=== PATIENT | female | born 1985 | race Caucasian/White ===

== ENCOUNTER → 2023-08-02 07:50 | Outpatient (REF) | payer OTHER, SELFPAY | LOC: HWRAD 07:50 | PROVIDERS: ATTENDING PHYSICIAN Physician Assistant Medical | DX: M79.10 Myalgia, unspecified site (principal); R52 Pain, unspecified; K76.0 Fatty (change of) liver, not elsewhere classified; R10.84 Generalized abdominal pain | CPT/HCPCS: 76700 ==

== ENCOUNTER → 2023-09-07 16:03 | Outpatient (REF) | payer OTHER, SELFPAY | LOC: WDC 16:03 | PROVIDERS: ATTENDING PHYSICIAN Physician Assistant Medical | DX: N64.4 Mastodynia (principal) | CPT/HCPCS: 77062; 77066 ==

== ENCOUNTER 2023-10-18 10:01 | Emergency (ER) | payer OTHER, SELFPAY ==
[2023-10-18 10:12] VITALS: BP 142/83
[2023-10-18 11:15] VITALS: BMI 32.0
--- NOTE | 2023-10-18 11:16 | ED.GENMED ---
History of Present Illness
<Brennan Holliday PA-C - Last Filed: 10/18/23 15:57>
General
Chief Complaint: Abdominal Symptoms
Source: patient
Exam Limitations: none
Time Seen by Provider: 10/18/23 10:56
Travel History
Have you had any contact with someone who has COVID-19?: No
Do you have any symptoms of coronavirus? Fever > 100 degrees, chills, cough, shortness of breath, sore throat, loss of taste or smell, muscle aches, or headache?: No
History of Present Illness
History of Present Illness:
37-year-old female presents with sudden onset left lower abdominal pain that sharp in nature. This started while getting ready for work. The pain is made worse with walking. No fever or flank pain. No urinary symptoms. Just finished her most
recent menstrual cycle. She has a history of common bile duct dilation which is being evaluated further with an MRI next month.
Past History
<Brennan Holliday PA-C - Last Filed: 10/18/23 15:57>
Past History
ED Past Medical History: None
ED Past Surgical History: Other ([place] teeth)
Phy Exam
<Brennan Holliday PA-C - Last Filed: 10/18/23 15:57>
Physical Exam
Physical Exam:
General: Well-appearing female no acute respiratory distress
HEENT: Normocephalic atraumatic
Heart: Regular rate and rhythm no murmurs lungs: Clear to auscultation bilaterally no wheezing
Abdomen: Soft tender to the left lower quadrant no guarding or rebound normal bowel sounds nondistended extremities: No cyanosis or edema
Extremities: No cyanosis
Course
<MICHELLE Coreas Last Filed: 10/18/23 15:57>
Orders/Labs/Results
Orders:
Orders
06/17/24 11:10
Test Result ONCE
10/18/23 11:16
Complete Blood Count/With Diff Urgent
Comprehensive Metabolic Panel Urgent
HCG, Serum Qualitative Screen Urgent
Lipase Urgent
Urinalysis Reflex To Culture Urgent
Date Specimen was Collected: 10/18/23
Time Specimen was Collected: 11:10
US Pelvis W Transvag Combined Urgent
Comment:
Reason For Exam: llq pain
10/18/23 12:43
CT Abd/pelvis W Iv Cont Urgent
Comment:
Reason For Exam: llq pain
Abnormal Lab Results
10/18/23
11:16
Hct 36.2 L %
(37.0-47.0)
MCV 79.7 L fL
(81.0-99.0)
Chloride 109 H mmol/L
(98-107)
Glucose 109 H mg/dl
(70-99)
10/18/23 11:16
10/18/23 11:16
Vital Signs
Initial and Last Documented VS:
Initial Vital Signs
Temp Pulse Resp BP Pulse Ox
98.2 F 81 18 142/83 96
10/18/23 10:12 10/18/23 10:12 10/18/23 10:12 10/18/23 10:12 10/18/23 10:12
Last Documented Vital Signs
Temp Pulse Resp BP Pulse Ox
98.2 F 74 18 126/77 98
10/18/23 10:12 10/18/23 16:10 10/18/23 13:50 10/18/23 16:10 10/18/23 13:50
Geoffreylt;Davon Greenberg DO - Last Filed: 10/18/23 16:21>
Orders/Labs/Results
Orders:
Orders
10/18/23 11:10
Test Result ONCE
10/18/23 11:16
Complete Blood Count/With Diff Urgent
Comprehensive Metabolic Panel Urgent
HCG, Serum Qualitative Screen Urgent
Lipase Urgent
Urinalysis Reflex To Culture Urgent
Date Specimen was Collected: 10/18/23
Time Specimen was Collected: 11:10
US Pelvis W Transvag Combined Urgent
Comment:
Reason For Exam: llq pain
10/18/23 12:43
CT Abd/pelvis W Iv Cont Urgent
Comment:
Reason For Exam: llq pain
Abnormal Lab Results
10/18/23
11:16
Hct 36.2 L %
(37.0-47.0)
MCV 79.7 L fL
(81.0-99.0)
Chloride 109 H mmol/L
(98-107)
Glucose 109 H mg/dl
(70-99)
10/18/23 11:16
10/18/23 11:16
Vital Signs
Initial and Last Documented VS:
Initial Vital Signs
Temp Pulse Resp BP Pulse Ox
98.2 F 81 18 142/83 96
10/18/23 10:12 10/18/23 10:12 10/18/23 10:12 10/18/23 10:12 10/18/23 10:12
Last Documented Vital Signs
Temp Pulse Resp BP Pulse Ox
98.2 F 74 18 126/77 98
10/18/23 10:12 10/18/23 16:10 10/18/23 13:50 10/18/23 16:10 10/18/23 13:50
Geoffreylt;Brennan Holliday PA-C - Last Filed: 10/18/23 15:57>
MDM/Problems Addressed
Differential Diagnosis Includes:
Sudden onset left lower quadrant versus pelvic pain. Question torsion versus cyst versus diverticulitis. Patient is nontender to the right lower quadrant do not clinically suspect appendicitis given sudden onset. No flank pain. Will urinalysis
for hematuria to suggest renal colic. Ultrasound pelvis pending
<Brennan Holliday PA-C - Last Filed: 10/18/23 15:57>
*Critical Care Note
Total Time (30-74mins, 75-104mins- exclusive of procedures): Not Applicable
<Brennan Holliday PA-C - Last Filed: 10/18/23 15:57>
Update Note
Update Note:
Ultrasound of pelvis shows right-sided ovarian cyst but would not explain patient's left lower quadrant pain. CT was ordered secondary to persistent pain to the left lower abdomen. CT was reviewed and is negative for acute findings. Patient does
have left lower abdominal pain question possible musculoskeletal discomfort. No indication for any further intervention. Recommended ibuprofen or Tylenol. Stable for discharge
ED Attending Note
<Brennan Holliday PA-C - Last Filed: 10/18/23 15:57>
-
Portions of this chart may have been created with voice recognition software.� Occasional wrong word or��sound alike� substitutions may have occurred due to the inherent limitations of voice recognition software.
<Davon Greenberg DO - Last Filed: 10/18/23 16:21>
ED Attending Note
Patient seen and examined by attending physician: Yes
I performed the substantive portion of visit, reviewed & personally made and approve the management plan that is documented in note by myself or SHAKIRA.: Yes
ED Attending Note:
Patient is a 37-year-old female presents to the emergency department can planing of sudden onset of pain this morning in her left lower flank. Patient states it was sudden in onset and increases with movement. Patient denies any nausea, vomiting,
diarrhea. Patient denies fever or chills. Patient denies any recent injuries or illnesses. Patient does have 2 children under the age of 6 that she carries around frequently. Patient denies any symptoms. On physical exam patient does not
appear to be any distress. Heart is regular lungs are clear. Abdomen is essentially nontender with mild tenderness in the area of the left iliac crest. Left hip is full range of motion without pain. Reviewed the labs and ultrasound as well as
CT. Patient will be discharged to follow-up with her doctor.
Discharge Plan
Departure
Patient Disposition: Home (Routine Discharge)
Date of Disposition: 10/18/23
Time of Disposition: 15:54
Patient with high blood pressure during this ER visit?: No
Discharge Problem:
Abdominal pain
Instructions: Abdominal Pain
Referrals:
Richa Nash MD [Family Provider] -
Activity Restrictions/Additional Instructions:
Use ibuprofen or Tylenol for pain. Return here for worsening symptoms otherwise follow-up with family doctor.
Interventions
Interventions:
*Risk Screen - Suicide Last Done: 10/18/23 12:32
*General Assessment Last Done: 10/18/23 11:16
*Neglect/Abuse Screening Last Done: 10/18/23 12:32
ED- Fall Risk Assessment Last Done: 10/18/23 11:10
*ED COVID-19 Vaccine History Last Done: 10/18/23 11:08
*Nursing Disposition Last Done: 10/18/23 16:10
RO-Piznes-Jjygcqjfex Assessment Last Done: 10/18/23 11:09
Discharge Date and Time
Discharge Date/Time: 10/18/23 16:11
Print Language: GEORGIAN
[2023-10-18 11:18] VITALS: BP 121/81
[2023-10-18 11:26] LABS: Urine Albumin Negative (Neg - Trace); Urine Bilirubin Negative (Negative); Urine Character Clear (Clear); Urine Color Yellow; Urine Glucose Negative (Negative); Urine Ketone Negative (Negative); Urine Leukocyte Negative (Negative); Urine Nitrite Negative (Negative); Urine Occult Blood Negative (Negative); Urine Specific Gravity 1.005 (<1.030); Urine Urobilinogen Negative (Neg - 1+)
[2023-10-18 11:30] LABS: % Basophils 0.7 % (0-2); % Eosinophils 1.6 % (0-6); % Immature Granulocytes 0.2 % (0-0.5); % Lymphocytes 34.5 % (20.5-51.1); % Monocytes 4.9 % (1.7-9.3); % Neutrophils 58.1 % (42.2-75.2); Absolute Eosinophils 0.1 10^3/uL (0-0.7); Absolute Lymphocytes 2.1 10^3/uL (1.2-3.4); Absolute Monocytes 0.3 10^3/uL (0.1-0.6); Absolute Neutrophils 3.5 10^3/uL (1.4-6.5); Hematocrit 36.2 % (37.0-47.0); Mean Corp Hgb Conc. 35.9 g/dL (33.0-37.0); Mean Corpuscular Hgb 28.6 pg (27.0-31.0); Mean Corpuscular Volume 79.7 fL (81.0-99.0); Mean Platelet Volume 9.8 fL (7.4-10.4); Nucleated Red Blood Cells % 0 %; Platelet Count 223 10^3/uL (130-400); Red Blood Cell Count 4.54 10^6/uL (4.20-5.40); Red Cell Dist. Width 13.2 % (11.5-14.5); White Blood Cell Count 6.1 10^3/uL (4.8-10.8)
[2023-10-18 11:39] LABS: HCG, Serum Qualitative Screen Negative
[2023-10-18 11:44] LABS: ALT (SGPT) 24 U/L (0-35); AST (SGOT) 24 U/L (14-36); Albumin 4.4 g/dl (3.5-5.0); Alkaline Phosphatase 48 U/L (38-126); Blood Urea Nitrogen 9 mg/dl (7-17); Calcium 9.4 mg/dl (8.4-10.2); Carbon Dioxide 25 mmol/L (22-30); Chloride 109 mmol/L (98-107); Estimated Creatinine Clearance > 125 ml/min; Glucose 109 mg/dl (70-99); Lipase 38 U/L (23-300); Potassium 4.3 mmol/L (3.5-5.1); Sodium 141 mmol/L (135-145); Total Bilirubin 0.8 mg/dl (0.2-1.3); Total Protein 6.9 g/dl (6.3-8.2); eGFR > 60.00
[2023-10-18 13:50] VITALS: BP 98/66
[2023-10-18 15:58] VITALS: BP 126/77
[2023-10-18 16:10] VITALS: BP 126/77
== END 2023-10-18 16:11 | disposition home or self-care (01) ==
LOC: EMR 10:01
PROVIDERS: Physician Assistant; EMERGENCY PHYSICIAN Emergency Medicine; FAMILY PHYSICIAN Internal Medicine
DX: R10.32 Left lower quadrant pain (principal)
CPT/HCPCS: 99285; 74177; 76830; 76856; 80053; 81003; 83690; 84703; 85025; Q9967

== ENCOUNTER → 2023-11-03 08:39 | Outpatient (REF) | payer OTHER, SELFPAY | LOC: MRI 3T 08:39 | PROVIDERS: ATTENDING PHYSICIAN Internal Medicine Gastroenterology; FAMILY PHYSICIAN Internal Medicine | DX: K83.8 Other specified diseases of biliary tract (principal) | CPT/HCPCS: 74183; A9575 ==

== ENCOUNTER 2024-02-21 14:36 | Emergency (ER) | payer OTHER, SELFPAY ==
[2024-02-21 15:00] VITALS: BP 148/97
--- NOTE | 2024-02-21 15:01 | ED.GENMED ---
ED Provider Triage
<Brittaney Alexandra LEAN MANAGER - Last Filed: 02/21/24 15:09>
-
Patient seen by provider in Triage?: Seen in Triage
Attestation: A medical screening examination has been initiated by a qualified medical provider. Based on the assessment performed at this time, it has been determined that an emergent medical condition may exist and the patient has been informed
that further medical evaluation and possible additional diagnostic testing may be needed.
HPI: 38 yo female states 'throbbing 9/10 pain upper part of my head,' had sudden onset 'really bad vertigo' while cooking dinner 2 nights ago, constant since then. Vomited several times in past two days, none today. Diarrhea (small squirts) twice a
day past 2 days, last, this a.m. Took Tylenol yesterday with no help. Took nothing today. Pt drinking water in triage.
GENERAL: Alert , in no apparent distress
EYE: No visual abnormalities.
ENT: Dry mucus membranes, No other abnormalities.
LUNGS: No acute respiratory distress
NEUROLOGICAL: Alert and oriented
SKIN: Skin intact. No visible changes.
MUSCULOSKELETAL: Moving extremities normally
PSYCH: Normal and appropriate interaction.
This is a medical evaluation conducted in person to initiate diagnostic evaluation and provide initial therapeutics. Please see further documentation by the treating clinician.
History of Present Illness
<Brittaney Alexandra, LEAN MANAGER - Last Filed: 02/21/24 15:09>
General
Chief Complaint: Dizziness
Time Seen by Provider: 02/21/24 17:19
<Ashly Faustin DO - Last Filed: 02/21/24 18:59>
History of Present Illness
History of Present Illness:
38-year-old female without significant past medical history presenting to the emergency department for dizziness and nausea and vomiting. Patient reports symptoms started about 2 days ago. She started to feel very dizzy, worse with any type of
head movement. Since onset of symptoms, has had nausea, vomiting, and subsequent headache. She is feeling dehydrated. Denies ever having symptoms like this in the past. She reports slight improvement of symptoms today, was able to get herself
dressed and get herself to the hospital, which was not the case in the past 2 days. Denies associated visual changes. Denies weakness or numbness to her extremities. Denies fever or sick contacts. Denies any injury or trauma. Denies additional
acute medical complaints
Past History
<Brittaney Alexandra, LEAN MANAGER - Last Filed: 02/21/24 15:09>
Past History
ED Past Medical History: None
ED Past Surgical History: Other ([place] teeth)
Phy Exam
<Ashly Faustin DO - Last Filed: 02/21/24 18:59>
Physical Exam
Physical Exam:
General: Well-appearing, no clinical signs of dehydration, nontoxic and in no acute distress
HEENT: protecting airway, pupils equal and reactive bilaterally, extraocular movements intact. Fatigable nystagmus when looking lateral left. TMs normal bilaterally
Neck: appears supple
CV: Normal heart rate, regular rhythm
Resp: No accessory muscle use, no increased work of breathing, lungs clear to auscultation bilaterally
Abd: Soft and non-distended, no tenderness to palpation
Extremities: No deformities, no swelling, no erythema, pulses and sensation intact
Neuro: alert, no focal neurologic deficit
: deferred
Rectal: deferred
Psych: Normal affect
Skin: Intact
Course
<Brittaney Alexandra, LEAN MANAGER - Last Filed: 02/21/24 15:09>
Orders/Labs/Results
Orders:
Orders
02/21/24 17:33
0.9% Sodium Chloride 1000 ml [Nss] 1,000 ml IV BOLUS
Ketorolac [Toradol] 30 mg IV NOW STA
Meclizine [Antivert] 25 mg PO NOW STA
Ondansetron Injectable [Zofran] 4 mg IV NOW STA
02/21/24 17:34
Test Result ONCE
02/21/24 17:49
Complete Blood Count/With Diff Urgent
Comprehensive Metabolic Panel Urgent
HCG, Serum Qualitative Screen Urgent
Abnormal Lab Results
02/21/24
17:49
MCV 78.1 L fL
(81.0-99.0)
Absolute Neuts (auto) 7.1 H 10^3/uL
(1.4-6.5)
Lymphocytes % 20.3 L %
(20.5-51.1)
02/21/24 17:49
02/21/24 17:49
Vital Signs
Initial and Last Documented VS:
Initial Vital Signs
Temp Pulse Resp BP Pulse Ox
97.9 F 83 16 148/97 99
02/21/24 15:00 02/21/24 15:00 02/21/24 15:00 02/21/24 15:00 02/21/24 15:00
Last Documented Vital Signs
Temp Pulse Resp BP Pulse Ox
97.9 F 78 18 113/78 99
02/21/24 15:00 02/21/24 16:40 02/21/24 16:40 02/21/24 16:40 02/21/24 16:40
<Ashly Faustin, DO - Last Filed: 02/21/24 18:59>
Orders/Labs/Results
Orders:
Orders
02/21/24 17:33
0.9% Sodium Chloride 1000 ml [Nss] 1,000 ml IV BOLUS
Ketorolac [Toradol] 30 mg IV NOW STA
Meclizine [Antivert] 25 mg PO NOW STA
Ondansetron Injectable [Zofran] 4 mg IV NOW STA
02/21/24 17:34
Test Result ONCE
02/21/24 17:49
Complete Blood Count/With Diff Urgent
Comprehensive Metabolic Panel Urgent
HCG, Serum Qualitative Screen Urgent
Abnormal Lab Results
02/21/24
17:49
MCV 78.1 L fL
(81.0-99.0)
Absolute Neuts (auto) 7.1 H 10^3/uL
(1.4-6.5)
Lymphocytes % 20.3 L %
(20.5-51.1)
02/21/24 17:49
02/21/24 17:49
Vital Signs
Initial and Last Documented VS:
Initial Vital Signs
Temp Pulse Resp BP Pulse Ox
97.9 F 83 16 148/97 99
02/21/24 15:00 02/21/24 15:00 02/21/24 15:00 02/21/24 15:00 02/21/24 15:00
Last Documented Vital Signs
Temp Pulse Resp BP Pulse Ox
97.9 F 78 18 113/78 99
02/21/24 15:00 02/21/24 16:40 02/21/24 16:40 02/21/24 16:40 02/21/24 16:40
<Ashly Faustin DO - Last Filed: 02/21/24 18:59>
MDM/Problems Addressed
MDM/Problems Addressed:
38-year-old female presenting to the emergency department for dizziness with nausea and vomiting. Vital signs are normal.
On exam, patient is well-appearing, no acute distress. She is resting comfortably. Unremarkable neurologic exam with lower suspicion for central neurologic process. Symptoms appear most consistent with BPPV. Do not feel patient requires any
advanced imaging at this time. Suspect headache is secondary to mild dehydration. Will screen with laboratory analysis and treat patient with IV fluids, Zofran, Toradol, meclizine and reassess for improvement.
19:00 - Labs are unremarkable. On reassessment, patient is reporting some interval improvement in her symptoms. At this time feel that she is stable for discharge with continued outpatient supportive therapy. Advised continued oral hydration as
tolerated. Will prescribe Zofran and meclizine. Advise ENT follow-up if symptoms persist. Return precautions discussed and patient verbalized understanding
<Ashly Faustin DO - Last Filed: 02/21/24 18:59>
*Critical Care Note
Total Time (30-74mins, 75-104mins- exclusive of procedures): Not Applicable
ED Attending Note
<Brittaney Alexandra NP - Last Filed: 02/21/24 15:09>
-
Portions of this chart may have been created with voice recognition software.� Occasional wrong word or��sound alike� substitutions may have occurred due to the inherent limitations of voice recognition software.
Discharge Plan
Departure
Patient with high blood pressure during this ER visit?: No
Condition: Good
Discharge Problem:
Benign paroxysmal positional vertigo
Instructions: Vertigo (a Type of Dizziness) (DC)
Prescriptions:
New
ondansetron 4 mg Tablet,Disintegrating
4 mg PO TIDPRN PRN (Reason: nausea/vomiting) Qty: 6 0RF
meclizine 25 mg tablet
25 mg PO TID PRN (Reason: dizziness) Qty: 15 0RF
Referrals:
Kaur Weiss CRNP [Family Provider] -
Teresa Martin MD [Active] - (vertigo)
Activity Restrictions/Additional Instructions:
You were seen in the emergency department for dizziness
You are suspected to have vertigo
Please follow-up closely with your primary care physician, as well as the ear nose and throat doctor if symptoms are persisting..
Return to the emergency department for any worsening of your symptoms, or any development of chest pain, difficulty breathing, abdominal pain with persistent vomiting and inability to tolerate food or liquid by mouth (concern for dehydration),
weakness, visual changes, headache or confusion, fever greater than 100.4, or any additional symptoms that are concerning to you.
Thank you for choosing [facility].
Interventions
Interventions:
*Risk Screen - Suicide Last Done: 02/21/24 15:00
*General Assessment Last Done: 02/21/24 17:41
*Neglect/Abuse Screening Last Done: 02/21/24 15:00
*ED COVID-19 Vaccine History Last Done: 02/21/24 15:00
ED- Neurological Assessment Last Done: 02/21/24 17:54
ED- Cardiac Assessment Last Done: 02/21/24 17:54
ED Swallowing Screen Last Done: 02/21/24 17:54
Discharge Date and Time
Print Language: [place]
[2024-02-21 16:40] VITALS: BP 113/78
[2024-02-21 17:41] VITALS: BMI 32.9
[2024-02-21] MEDS: NSS 1000 IV (17:50)
[2024-02-21] MEDS: TORADOL 30 MG IV (17:51)
[2024-02-21] MEDS: ZOFRAN 4 MG IV (17:51)
[2024-02-21] MEDS: ANTIVERT 25 MG PO (17:51)
[2024-02-21 17:53] VITALS: BP 116/84
[2024-02-21 18:04] LABS: % Basophils 0.4 % (0-2); % Eosinophils 0.4 % (0-6); % Immature Granulocytes 0.2 % (0-0.5); % Lymphocytes 20.3 % (20.5-51.1); % Monocytes 4.6 % (1.7-9.3); % Neutrophils 74.1 % (42.2-75.2); Absolute Lymphocytes 1.9 10^3/uL (1.2-3.4); Absolute Monocytes 0.4 10^3/uL (0.1-0.6); Absolute Neutrophils 7.1 10^3/uL (1.4-6.5); Hematocrit 37.8 % (37.0-47.0); Hemoglobin 13.5 g/dL (12.0-16.0); Mean Corp Hgb Conc. 35.7 g/dL (33.0-37.0); Mean Corpuscular Hgb 27.9 pg (27.0-31.0); Mean Corpuscular Volume 78.1 fL (81.0-99.0); Mean Platelet Volume 9.4 fL (7.4-10.4); Nucleated Red Blood Cells % 0 %; Platelet Count 217 10^3/uL (130-400); Red Blood Cell Count 4.84 10^6/uL (4.20-5.40); Red Cell Dist. Width 13.2 % (11.5-14.5); White Blood Cell Count 9.6 10^3/uL (4.8-10.8)
[2024-02-21 18:14] LABS: HCG, Serum Qualitative Screen Negative
[2024-02-21 18:17] LABS: ALT (SGPT) 34 U/L (0-35); AST (SGOT) 26 U/L (14-36); Albumin 4.7 g/dl (3.5-5.0); Alkaline Phosphatase 52 U/L (38-126); Blood Urea Nitrogen 8 mg/dl (7-17); Calcium 9.4 mg/dl (8.4-10.2); Carbon Dioxide 22 mmol/L (22-30); Chloride 105 mmol/L (98-107); Estimated Creatinine Clearance > 125 ml/min; Glucose 82 mg/dl (70-99); Potassium 3.7 mmol/L (3.5-5.1); Sodium 140 mmol/L (135-145); Total Bilirubin 0.9 mg/dl (0.2-1.3); Total Protein 7.1 g/dl (6.3-8.2); eGFR > 60.00
[2024-02-21 19:00] VITALS: BP 115/75
== END 2024-02-21 19:35 | disposition home or self-care (01) ==
LOC: EMR 14:36
PROVIDERS: EMERGENCY PHYSICIAN Student in an Organized Health Care Education/Training Program; FAMILY PHYSICIAN Nurse Practitioner Adult Health
DX: H81.10 Benign paroxysmal vertigo, unspecified ear (principal)
CPT/HCPCS: 99283; 80053; 84703; 85025

== ENCOUNTER → 2024-06-12 08:07 | Outpatient (REF) | payer OTHER, SELFPAY | LOC: HWRAD 08:07 | PROVIDERS: ATTENDING PHYSICIAN Obstetrics & Gynecology; FAMILY PHYSICIAN Nurse Practitioner Adult Health | DX: Z30.431 Encounter for routine checking of intrauterine contraceptive device (principal) | CPT/HCPCS: 76830; 76856 ==

== ENCOUNTER → 2024-09-26 15:18 | Outpatient (REF) | payer OTHER, SELFPAY | LOC: HWRAD 15:18 | PROVIDERS: ATTENDING PHYSICIAN Nurse Practitioner Family | DX: M54.2 Cervicalgia (principal) | CPT/HCPCS: 72050 ==